=== PATIENT | male | born 1945 | race Hispanic/Latino ===

== ENCOUNTER 2017-12-17 09:20 | Emergency (ER) | payer OTHER, MEDICARE ==
[2017-12-17 09:37] VITALS: BP 156/66
[2017-12-17] MEDS ORDERED: MOTRIN PO ONE (09:41)
[2017-12-17] MEDS ORDERED: ULTRAM PO ONE (09:41)
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
== END 2017-12-17 12:32 | disposition home or self-care (01) ==
LOC: ED 09:20
DX: S13.4XXA Sprain of ligaments of cervical spine, initial encounter (principal); V89.2XXA Person injured in unspecified motor-vehicle accident, traffic, initial encounter; Y93.89 Activity, other specified; Y92.488 Other paved roadways as the place of occurrence of the external cause; Y99.8 Other external cause status
CPT/HCPCS: 72040; 99283

== ENCOUNTER 2019-07-08 10:57 | Emergency (ER) | payer MEDICARE ==
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
[2019-07-08] MEDS ORDERED: SODIUM BICARB 8.4% 50 MEQ/50 ML SYRINGE IV ONE (14:12)
[2019-07-08] MEDS ORDERED: ATROPINE 0.1% (1 MG/10 ML) CARDIAC SYRINGE ONE (14:12)
[2019-07-08] MEDS ORDERED: EPINEPHrine 1:10,000 1 MG/10 ML SYRINGE ONE (14:12)
[2019-07-08] MEDS ORDERED: DOPamine/D5W 800 MG/250 ML DRIP IV ONE (14:14)
== END 2019-07-08 16:53 ==
LOC: ED 10:57
DX: I46.9 Cardiac arrest, cause unspecified (principal); E11.9 Type 2 diabetes mellitus without complications; Z98.890 Other specified postprocedural states
CPT/HCPCS: 82962; 99285; J0171; J0461; J1265; 92950